=== PATIENT | male | born 1945 | race Caucasian/White ===

== ENCOUNTER 2016-12-14 06:11 | Day surgery (SDC) | payer OTHER ==
[2016-12-11 17:54] LABS: HEMOGLOBIN 17.4 g/dL (13.6-17.8)
[2016-12-11 18:08] LABS: BUN (BLOOD UREA NITROGEN) 16 MG/DL (6-23); CHLORIDE, SERUM 103 MMOL/L (96-112); CREATININE 1.01 MG/DL (0.70-1.30); GFR AFRICAN AMERICAN 86 ML/MIN (>=60); GFR NON AFRICAN AMERICAN 74 ML/MIN (>=60); GLUCOSE, SERUM 162 MG/DL (60-99); POTASSIUM, SERUM 4.4 MMOL/L (3.5-5.3); SODIUM, SERUM 143 MMOL/L (135-148)
[2016-12-11 18:09] LABS: CO2 (CARBON DIOXIDE) 31 MMOL/L (24-34)
--- NOTE | ~2016-12-14 | OP ---
Record Of Operation [facility] [address] [place]. [address] NAME: COURTNEY FERRARI : 43 STATUS : [facility]#: [id number] AGE: 71 ADM/REG DATE : 12/14/16 MR#: [id number] REPORT SERV DATE: 12/15/16 DICTATED BY: TONY VELEZ DATE: 12/14/16 REPORT STATUS : Draft TRANSCRIBED BY: MODL DATE: 12/14/16 DATE OF PROCEDURE: 12/14/2016 PREOPERATIVE DIAGNOSES: 1. Appendiceal neoplasm. 2. Obstructive sleep apnea, with CPAP. POSTOPERATIVE DIAGNOSES: 1. Appendiceal neoplasm. 2. Obstructive sleep apnea, with CPAP. 3. Chronic appendicitis with appendiceal dilatation. ANESTHESIA: General. SURGEON: Tony Velez M.D. CLINICAL RESEARCH ADMINISTRATOR: Edward. COMPLICATIONS: None. DRAINS: None. ESTIMATED BLOOD LOSS: 30 mL. FINDINGS: 1. The patient was noted to have a dilated appendix with erythema of the distal appendix after the first approximately 0.5 to 1 cm from the orifice. 2. The appendix was noted to be markedly elongated with neoplasm at the proximal portion by palpation. 3. The appendix was divided with approximately 1 cm cecal margin. OPERATIVE TECHNIQUE: The patient was brought to operating room and placed on the table in supine position. He had preoperative IV antibiotics. He had sequential hose in place. He voided prior to the procedure. He underwent general endotracheal anesthesia and was prepped and draped in a sterile fashion and a time-out was completed. Local anesthesia was instilled to the periumbilical skin. A 15 blade knife was used to make the umbilical incision. The incision was carried through the subcutaneous tissues. The skin and fascia were then elevated and the Veress needle was inserted and water drop test safely performed. A 15 mm of pneumoperitoneum was obtained. A 12 mm trocar was then inserted through the umbilicus followed by the laparoscope. The patient was then placed in steep Trendelenburg and rolled to the left. Two 5 mm midline trocars were placed between the pubic tubercle and umbilicus under direct visualization. The two atraumatic graspers were used to mobilize the small bowel out of the right upper quadrant. There were adhesions of the omentum suprapubically that limited mobility of the distal small bowel. The appendix was noted to be normal caliber at the orifice and junction with the cecum with some minimal dilatation with palpable mass identified with tactile sense with the graspers and distal dilatation Record Of Operation [facility] [address] [place]. [address] NAME: COURTNEY FERRARI : 43 STATUS : [facility] PAT#: [id number] AGE: 71 ADM/REG DATE : 12/14/16 MR#: [id number] REPORT SERV DATE: 12/15/16 DICTATED BY: TONY VELEZ DATE: 12/14/16 REPORT STATUS : Draft TRANSCRIBED BY: MODL DATE: 12/14/16 with erythema. The appendix was grasped at its base and elevated. The cecum was noted to have adhesions to the right pelvic wall, and these were taken down using scissors without cautery, and the base of the cecum was mobilized from the retroperitoneum. This allowed the window to be created in the mesentery of the appendiceal-cecal junction. The stapler was then inserted and closed. The tips of the staple were rolled to ensure there were no unwanted structures within the staple line and that the terminal ileum was clear. The stapler was then fired and removed. The staple line was noted to be hemostatic and without encroachment of unwanted structures. The rest of the appendix was then mobilized from the right pelvic sidewall using sharp dissection with scissors and no cautery. It was elevated completely and due to its significant elongation, two firings of the linear stapler were then used with vascular loads to divide the mesoappendix. The specimen was placed in a bag and removed through the umbilicus. The laparoscope and trocar were reinserted. Examination of the hepatic fossa was noted to be hemostatic. The right lower quadrant operative site was irrigated and aspirated and noted to be hemostatic. There was no evidence of any other visual abnormalities. The instruments and trocars were then removed under direct visualization as the pneumoperitoneum was aspirated. The umbilical fascia was reapproximated using a [id number]-mholw Vicryl suture. The skin edges were reapproximated using interrupted subcuticular Monocryl sutures followed by Dermabond. He was extubated and taken to the recovery room in stable condition. All sponge and needle counts were reported correct. SONI/JN Tony Velez M.D. / [id number] CC: Carlos Heath DONALD A.
[~2016-12-14 06:11] MED LIST: ACET500CAP PO; APPLE CIDER VINEGAR PO; AUG500 PO; C5; FISH-EPA1000 MG PO; FLORASTOR250 MG PO; HYDROCHLOROT12.5 MG PO; LISINOPRIL40 MG PO; LYRICA75 PO; METAMUCIL CAN7 OZ PO; MULTIVIT/MIN PO; NORCO1 TA1 PO; OTC COUGH SYRUP PO; OTC LAXATIVE PO; OTC VITAMIN D PO; PRIN20 PO; PROSCAR5 PO; VITAMIN D1000 UNI1 PO; VITAMIN D31000 UNIT PO; ZESTRIL20 MG PO; ZOFRAN4 PO; ZOSYN375 IV
== END 2016-12-14 12:22 | disposition home or self-care (01) ==
LOC: SDC 06:11
PROVIDERS: Surgery
PROC: 0DTJ0ZZ Resection of Appendix, Open Approach (ICD-10-PCS; principal; 2016-12-14 07:45)
DX: D12.1 Benign neoplasm of appendix (principal); G47.33 Obstructive sleep apnea (adult) (pediatric); N28.1 Cyst of kidney, acquired; Z79.899 Other long term (current) drug therapy; Z91.041 Radiographic dye allergy status
CPT/HCPCS: 80048; 85014; 85018; 88304; 88307; 88342; 93005; A9270-GY; J0690; J2250; J2405; J2710; J3010